=== PATIENT | female | born 1990 | race Caucasian/White ===

== ENCOUNTER → 2019-06-15 | Outpatient (CLI) | payer OTHER ==
--- NOTE | 2019-06-16 16:57 | MRI ---
EXAM DESCRIPTION: Cervical Spine: MRI. CLINICAL HISTORY: 28 years Female NECK PAIN COMPARISON: None. TECHNIQUE: Multiplanar, high-field MRI, multiple sequences, non-contrast Cervical spine. FINDINGS: C2-C3: Normal signal in the disc and disc space maintained. Left facet arthrosis and hypertrophy with minimal narrowing of the left neural foramen. Canal and right neuroforamen are patent. C4-C5: Minimal disc desiccation with disc space maintained. Left uncinate spur. Bilateral facet joints and ligaments are unremarkable. Mild left neural foraminal narrowing. Canal and right foramen are patent. C5-C6: Minimal disc desiccation and disc space loss. Tiny posterior bulge. Bilateral facet joints unremarkable. Canal and foramina are patent. Normal signal in the remaining discs with no bulging. Disc spaces preserved. Canal and neural foramina are patent. Facet joints are unremarkable. Spinal alignment kyphosis C2-C4. No cord compression or cord edema. Atlantoaxial joint . Slight posterior angulation of the odontoid process is impressing on the anterior canal ligaments but not the lingula or the proximal cord.. Base of the cerebellar tonsils is 2 mm below the foramen magnum. Paravertebral soft tissues negative.. Vertebral bodies are not compressed at any level. Normal marrow signal in the remaining vertebral bodies and the posterior elements. IMPRESSION: 1. Normal C2-C3 disc and disc space. Left facet arthrosis and hypertrophy and minimal narrowing of the left neural foramen. No nerve impingement. 2. C4-C5: Left uncinate spur. Mild left neural foraminal narrowing. No nerve impingement. 3. Minimal disc desiccation and disc space loss at C5-6. Canal and neural foramina are patent. Electronically signed by: Gary Lopez MD 06/16/2019 4:55 PM CDT
== END ==
LOC: MRI 14:12
PROVIDERS: ATTEND General Practice
DX: M50.322 Other cervical disc degeneration at C5-C6 level (principal); M47.892 Other spondylosis, cervical region; M25.78 Osteophyte, vertebrae